=== PATIENT | male | born 1975 | race Caucasian/White ===

== ENCOUNTER 2017-02-28 19:52 | Emergency (ER) | payer MEDICAID ==
[~2017-02-28 19:52] MED LIST: ALD25 PO; COLACE100 MG PO; COR3 PO; GOOD SENSE ASPI81 M3 PO; LOVASTATIN20 MG PO; NOR10T PO; TOP50 PO; V5 PO
[2017-02-28 22:22] VITALS: BP 169/119
== END 2017-02-28 22:22 | disposition home or self-care (01) ==
LOC: ED 19:52
DX: S90.112A Contusion of left great toe without damage to nail, initial encounter (principal); I10 Essential (primary) hypertension; W20.8XXA Other cause of strike by thrown, projected or falling object, initial encounter; Y93.89 Activity, other specified; Y99.8 Other external cause status; Y92.89 Other specified places as the place of occurrence of the external cause

== ENCOUNTER 2017-07-29 00:40 | Inpatient (IN) | payer MEDICAID ==
[2017-07-29] VITALS (7 sets, daily range): BP systolic 134–179; BP diastolic 104–124; Ht 170.2 cm; Wt 87.1 kg
[~2017-07-29] VITALS: Ht 170.2 cm; Wt 87.1 kg
[2017-07-29 04:29] LABS: BASOPHIL % 0.5 % (0-2); PLATELET COUNT 185 x10^3mcL (130-400); RED CELL DISTRIBUTION WIDTH 14.4 % (11.5-14.5)
[2017-07-29 04:49] LABS: CALCIUM 7.8 mg/dL (8.5-10.1); CARBON DIOXIDE 26.2 mmol/L (21-32); CREATININE SERUM 1.4 mg/dL (0.7-1.3); POTASSIUM SERUM 4.3 mmol/L (3.5-5.1)
[2017-07-29 04:53] LABS: BILIRUBIN TOTAL 0.5 mg/dL (0.20-1.00)
[2017-07-29 04:54] LABS: TOTAL PROTEIN, SERUM 6.1 g/dL (6.4-8.2)
[2017-07-29 06:51] LABS: MAGNESIUM 2.2 mg/dL (1.8-2.4); PHOSPHOROUS 3.6 mg/dL (2.5-4.9)
[2017-07-29 06:58] LABS: CHOLESTEROL/HDL RATIO 3.9
[2017-07-29 07:45] LABS: FREE T4 0.96 ng/dL (0.76-1.46); FREE THYROXINE INDEX 1.8 ug/dL (1.4-4.5); T4(THYROXINE) 4.7 ug/dL (4.7-13.3)
[2017-07-29 08:50] LABS: T3 TOTAL 0.94 ng/mL
[2017-07-29 14:19] LABS: UA SPECIFIC GRAVITY >=1.030 (1.005-1.035); microscopic required? YES; urine erythrocyte NEGATIVE (NEGATIVE)
[2017-07-29 16:13] LABS: AMPHETAMINE QUAL UR NONE DETECTED (NEG <=1000)
[2017-07-30] VITALS: BP 143/113
[2017-07-30 06:07] VITALS: BP 147/109
[2017-07-30 06:36] LABS: CALCIUM 8.6 mg/dL (8.5-10.1); CARBON DIOXIDE 29.6 mmol/L (21-32); CREATININE SERUM 1.4 mg/dL (0.7-1.3); POTASSIUM SERUM 3.8 mmol/L (3.5-5.1)
[2017-07-30 06:56] LABS: BASOPHIL % 0.8 % (0-2); PLATELET COUNT 192 x10^3mcL (130-400)
[2017-07-30 09:13] VITALS: BP 139/100
[2017-07-30] MEDS ORDERED: COR6 PO (09:39)
[2017-07-30] MEDS ORDERED: ALD25 PO (09:40)
[2017-07-30] MEDS ORDERED: ZES10 PO (09:40)
[2017-07-30] MEDS ORDERED: PEP20 PO (09:41)
[2017-07-30] MEDS ORDERED: LASIX20 MG PO (09:48)
[2017-07-30 13:00] VITALS: BP 146/116
[2017-07-30 13:10] VITALS: BP 141/107
== END 2017-07-30 14:35 | disposition home or self-care (01) | DRG 243 ==
LOC: ED 00:40 → DU 06:13
PROVIDERS: Emergency Medicine; Family Medicine
DX: K21.9 Gastro-esophageal reflux disease without esophagitis (principal); N17.0 Acute kidney failure with tubular necrosis; I50.43 Acute on chronic combined systolic (congestive) and diastolic (congestive) heart failure; E44.0 Moderate protein-calorie malnutrition; I11.0 Hypertensive heart disease with heart failure; E87.8 Other disorders of electrolyte and fluid balance, not elsewhere classified; I42.9 Cardiomyopathy, unspecified; E66.9 Obesity, unspecified; I08.1 Rheumatic disorders of both mitral and tricuspid valves; K76.0 Fatty (change of) liver, not elsewhere classified; N13.30 Unspecified hydronephrosis; Z91.19 Patient's noncompliance with other medical treatment and regimen; Z68.30 Body mass index [BMI] 30.0-30.9, adult; Z79.899 Other long term (current) drug therapy; Z79.1 Long term (current) use of non-steroidal anti-inflammatories (NSAID); Z79.2 Long term (current) use of antibiotics; Z82.49 Family history of ischemic heart disease and other diseases of the circulatory system
CPT/HCPCS: 83880; 84439; 90658; J0360; J1644; J1940; J3490; J7030; Q0092